=== PATIENT | female | born 1970 | race Caucasian/White ===

== ENCOUNTER 2019-06-16 22:00 | Emergency (ER) | payer OTHER ==
[~2019-06-16] VITALS: Ht 170.2 cm; Wt 71.8 kg
--- NOTE | 2019-06-16 22:20 | NUR ---
PT SEEN BY TOSIN CARROLL CONTACTED THE [facility] TO INITIATE AND COMPLETE AN INJURY REPORT PER POLICY . CHARGE NURSE ALSO REQUESTED PT FILL OUT AN EXPOSURE LAB REQUISITION . INJURY OCCURED AT 2140 IN THE PATIENTS ROOM AND WAS CLEANED AND REPORTED TO CHARGE NURSE SUKHDEV AND ANALYTICAL LABORATORY TECHNICIAN TEE ELLISON. PT COROPORTIVE AND APPROPRIATE FOR CIRCUMSTANCES .
--- NOTE | 2019-06-16 22:26 | NUR ---
CLAIM INCIDENT REPORT GIVEN TO PATIENT IS # [id number]
[2019-06-16 22:51] VITALS: BP 109/69
== END 2019-06-16 22:45 | disposition home or self-care (01) ==
LOC: ER 22:00
DX: S61.231A Puncture wound without foreign body of left index finger without damage to nail, initial encounter (principal); W46.1XXA Contact with contaminated hypodermic needle, initial encounter; Y93.89 Activity, other specified; Y92.128 Other place in nursing home as the place of occurrence of the external cause; Y99.9 Unspecified external cause status
CPT/HCPCS: 99281